=== PATIENT | female | born 1990 | race Caucasian/White ===

== ENCOUNTER 2019-09-06 23:23 | Emergency (ER) | payer OTHER ==
[~2019-09-06] VITALS: Ht 165.1 cm; Wt 75.0 kg
--- NOTE | 2019-09-06 23:58 | PHYS DOC ---
Adult General Chief Complaint Chief Complaint: ABDOMINAL PAIN HPI HPI Patient is a 29-year-old female who is presents secondary to complaint of vaginal bleeding times one earlier this evening and lower abdominal and lower back pain. She has no loss of fluid and no discharge. She states that she has abdominal problems but no official diagnosis and she often has lower abdominal pain and low back pain. She was concerned tonight because of the bleeding. Her last cycle was July 05 and she has had positive test. She had no issues in her first 2 pregnancies. No medications taken prior to arrival. Pain is 6/10. Review of Systems Review of Systems All other ROS is negative unless otherwise stated in HPI Physical Exam Physical Exam See above Constitutional: Well developed, well nourished, no acute distress, non-toxic appearance. [] HENT: Normocephalic, atraumatic, bilateral external ears normal, oropharynx moist, no oral exudates, nose normal. [] Eyes: PERRLA, EOMI, conjunctiva normal, no discharge. [] Neck: Normal range of motion, no tenderness, supple, no stridor. [] Cardiovascular:Heart rate regular rhythm, no murmur [] Lungs & Thorax: Bilateral breath sounds clear to auscultation [] Abdomen: Bowel sounds normal, soft, mild lower abd ttp, no masses, no pulsatile masses. [] Skin: Warm, dry, no erythema, no rash. [] Back: No tenderness, no CVA tenderness. [] Extremities: No tenderness, no cyanosis, no clubbing, ROM intact, no edema. [] Neurologic: Alert and oriented X 3, normal motor function, normal sensory function, no focal deficits noted. [] Psychologic: Affect normal, judgement normal, mood normal. [] EKG EKG [] Radiology/Procedures Radiology/Procedures US showed 7w6d demise per US tech.[] Course & Med Decision Making Course & Med Decision Making Pertinent Labs and Imaging studies reviewed. (See chart for details) Patient seen for vaginal bleeding in with lower abdominal lower back pain. We'll get ultrasound to rule out ectopic . Check basic labs and hCG level. Patient states her blood type is O+ so she does not RhoGAM. US shows intrauterine demise per US tech. Will provide pain medication and have patient f/u next week with OB. Brandon Disclatunde Taylor Disclaimer This electronic medical record was generated, in whole or in part, using a voice recognition dictation system. Departure Departure: Impression: Primary Impression: Lower abdominal pain Additional Impression: Miscarriage Disposition: 01 HOME, SELF-CARE Condition: STABLE Patient Instructions: Miscarriage Additional Instructions: Please follow up with OB next week for reevaluation. Scripts Hydrocodone Bit/Acetaminophen (NORCO 5-325 TABLET) 1 Each Tablet 1 TAB PO PRN Q6HRS PRN for PAIN for 5 Days, #20 TAB 0 Refills Prov: RICHAR MORALES DO 09/07/19 Problem Qualifiers RICHAR MORALES DO Sep 06, 2019 23:58
[2019-09-07 01:15] LABS: BASO % 0 % (0-3); EOS # 0.2 x10^3/uL (0.0-0.7); EOS % 2 % (0-3); HEMATOCRIT 39.7 % (36.0-47.0); HEMOGLOBIN 13.1 g/dL (12.0-15.5); LYMPH # 1.6 x10^3/uL (1.0-4.8); LYMPH % 15 % (24-48); MEAN CORPUSCULAR HEMOGLOBIN 30 pg (25-35); MEAN CORPUSCULAR HGB CONC 33 g/dL (31-37); MEAN CORPUSCULAR VOLUME 92 fL (79-100); MONO % 9 % (0-9); NEUT % 74 % (31-73); PLATELET COUNT 254 x10^3/uL (140-400); RED BLOOD COUNT 4.33 x10^6/uL (3.50-5.40); RED CELL DISTRIBUTION WIDTH 13.2 % (11.5-14.5); WHITE BLOOD COUNT 10.9 x10^3/uL (4.0-11.0)
[2019-09-07 01:17] LABS: CREATININE 0.5 mg/dL (0.6-1.0); GFR 144.9; POTASSIUM 4.4 mmol/L (3.5-5.1)
[2019-09-07] MEDS ORDERED: HYDR-3165 PO (01:34)
--- NOTE | 2019-09-07 02:11 | RAD ---
PREG 1ST TRIMESTER Clinical Indication: Vaginal bleeding, pain. Comparison: None. TECHNIQUE: Real-time ultrasound imaging of the pelvis using transabdominal and transvaginal window is performed. Findings: Uterus measures 11 x 6.5 x 7.2 cm. No focal abnormality. No cul-de-sac free fluid. The maternal ovaries are normal. No evidence of adnexal mass. Intrauterine gestational sac contains a yolk sac and pole. There is a perigestational hemorrhage on the right measuring 12 x 8 x 10 mm. [place]-rump length 1.5 cm, 7 weeks and 6 days. No heart tones are detected. The cervix length is 3.5 cm. The cervix is closed. IMPRESSION: 1. There is an intrauterine gestational sac containing a pole. No heart tones are detected suggesting failed first trimester . Suggest serial quantitative beta hCG. 2. Small perigestational hemorrhage. Electronically signed by: Vic Campos MD (09/07/2019 2:07 AM) [id number]
[2019-09-07 02:32] LABS: BACTERIA,URINE 0 /HPF (0-FEW); BILIRUBIN,URINE NEG (NEG); CLARITY,URINE CLEAR; COLOR,URINE YELLOW; GLUCOSE,URINE NEG (NEG); NITRITE,URINE NEG (NEG); RBC,URINE 0 /HPF (0-2); SQUAMOUS EPITHELIAL CELL,UR MOD /LPF; UROBILINOGEN,URINE 0.2 mg/dL (0.2 mg/dL); WBC,URINE OCC /HPF (0-4)
== END 2019-09-07 01:38 | disposition home or self-care (01) ==
LOC: ER 23:23
DX: O03.9 Complete or unspecified spontaneous abortion without complication (principal); Z3A.01 Less than 8 weeks gestation of pregnancy
CPT/HCPCS: 36415; 76801; 80048; 81001; 84702; 85025; 99284